=== PATIENT | male | born 1995 | race Caucasian/White ===

== ENCOUNTER 2022-01-08 20:14 | Emergency (ER) | payer BC ==
[2022-01-08] MEDS ORDERED: traMADol 50 MG Tab PO ONE (21:18)
== END 2022-01-08 21:34 | disposition home or self-care (01) ==
LOC: LL.ED 20:14
DX: K02.9 Dental caries, unspecified (principal)
CPT/HCPCS: 99282; 99283; A9270-GY

== ENCOUNTER 2023-09-01 10:45 | Emergency (ER) | payer BC, OTHER ==
[2023-09-01] MEDS ORDERED: Sodium Chloride 0.9% 10 ML Syringe FLUSH PRN (10:52)
[2023-09-01 11:09] LABS: BASOPHILS ABSOLUTE AUTO 0.02 K/uL (0.00-0.20); BASOPHILS PERCENT AUTO 0.4 % (0.0-2.0); EOSINOPHILS ABSOLUTE AUTO 0.02 K/uL (0.00-0.50); EOSINOPHILS PERCENT AUTO 0.4 % (0.0-5.0); HEMATOCRIT 39.8 % (39.0-49.0); HEMOGLOBIN 13.6 g/dL (13.1-16.8); LYMPHOCYTES ABSOLUTE AUTO 1.37 K/uL (0.50-3.50); LYMPHOCYTES PERCENT AUTO 27.8 % (10.0-50.0); MEAN CORPUSCULAR HEMOGLOBIN 28.9 pg (28.2-33.3); MEAN CORPUSCULAR HGB CONC 34.2 g/dL (31.7-36.0); MEAN CORPUSCULAR VOLUME 84.7 fL (84.0-98.0); MONOCYTES ABSOLUTE AUTO 0.39 K/uL (0.00-1.00); MONOCYTES PERCENT AUTO 7.9 % (2.0-14.0); NEUTROPHILS ABSOLUTE AUTO 3.13 K/uL (1.40-7.00); NEUTROPHILS PERCENT AUTO 63.5 % (45.0-80.0); PLATELET COUNT,PLT 262 K/uL (150-350); RED CELL DISTRIBUTION WIDTH 12.3 % (11.2-14.1); WHITE BLOOD CELL COUNT,WBC 4.9 K/uL (4.0-10.2)
[2023-09-01] MEDS: Sodium Chloride 0.9% 1,000 ML IV ONE (11:15)
[2023-09-01 11:30] LABS: ALBUMIN 4.8 g/dL (3.4-5.0); ANION GAP 9.6 meq/L (7-15); BILIRUBIN TOTAL 0.9 mg/dL (0.2-1.0); CALCIUM 9.5 mg/dL (8.5-10.1); CARBON DIOXIDE,CO2 27.4 mmol/L (21.0-32.0); CREATININE 0.93 mg/dL (0.51-1.17); EST CRCL DRUG DOSING (CG) 142.6 mL/min; MAGNESIUM 1.7 mg/dL (1.8-2.4); POTASSIUM,K 3.7 mmol/L (3.5-5.1); PROTEIN TOTAL,TP 8.4 g/dL (6.4-8.2)
[2023-09-01 11:47] LABS: CORONAVIRUS COVID-19 NAA NEGATIVE (NEGATIVE); INFLUENZA A NAA NEGATIVE (NEGATIVE); INFLUENZA B NAA NEGATIVE (NEGATIVE); RESPIRATORY SYNCYTIAL VIR NAA NEGATIVE (NEGATIVE)
== END 2023-09-01 13:35 | disposition home or self-care (01) ==
LOC: LL.ED 10:45
DX: K02.9 Dental caries, unspecified (principal); G44.52 New daily persistent headache (NDPH); R42 Dizziness and giddiness; H60.90 Unspecified otitis externa, unspecified ear; Z88.5 Allergy status to narcotic agent
CPT/HCPCS: 0241U; 36415; 80053; 83605; 83735; 85025; 87040; 99284; J7030